=== PATIENT | male | born 1975 | race Caucasian/White ===

== ENCOUNTER 2021-06-27 17:09 | Outpatient (CLI) | payer BC ==
[2021-06-27] VITALS (7 sets, daily range): BP systolic 157–178; BP diastolic 82–93; PULSE 85–93; TEMP 101.1
[~2021-06-27 17:09] MED LIST: ALEVE 220MG220 MG PO; ASPIRIN 32325 MG/TAB PO; CLARITIN 1010 MG/TAB PO; FARXIGA10 PO; FLEXERIL 1010 MG/TAB PO; GLUCOPHAGE1000 MG PO; GLUCOTROL10 MG PO; MASON NATURAL500 MG PO; MICARDIS20 MG PO; MULTI VITAMINS1 TAB PO; NORVASC 10MG10 MG PO; OMEGA-3 1000 MG1 CAP PO; PROPECIA1 MG PO; TRULICITY3 MG/0.5 M SQ; VITAMIN B COMPL1 T16 PO; VITAMINC1000TA PO
== END 2021-06-27 17:30 | disposition home or self-care (01) ==
LOC: EUO 17:09
DX: U07.1 COVID-19 (principal); E11.9 Type 2 diabetes mellitus without complications; E66.9 Obesity, unspecified; I51.9 Heart disease, unspecified
CPT/HCPCS: M0245